=== PATIENT | male | born 1975 | race African-American/Black ===

== ENCOUNTER 2018-09-12 09:50 | Emergency (ER) | payer SELFPAY | END 2018-09-12 10:16 | disposition home or self-care (01) | LOC: BURERS 09:50 | DX: R05 Cough (principal); I10 Essential (primary) hypertension | CPT/HCPCS: 99283 ==

== ENCOUNTER → 2019-06-16 | Emergency (ER) | payer SELFPAY ==
[~2019-06-16] MED LIST: Acetaminophen 500 MG TAB ONE
== END ==
LOC: BURERS 16:27
DX: K08.89 Other specified disorders of teeth and supporting structures (principal); Z79.899 Other long term (current) drug therapy
CPT/HCPCS: 99282

== ENCOUNTER 2019-06-18 07:09 | Emergency (ER) | payer SELFPAY ==
[2019-06-18] MEDS ORDERED: Amoxicillin/Potassium Clav 875 MG TAB ONE (07:27)
[2019-06-18] MEDS ORDERED: Ketorolac Tromethamine 60 MG/2 ML VIAL ONE (07:28)
[2019-06-18] MEDS ORDERED: cefTRIAXone\\ROCEPHIN 1 GM VIAL ONE (07:28)
[2019-06-18] MEDS ORDERED: Lidocaine 1% PF 5 ML VIAL ONE (07:28)
== END 2019-06-18 07:59 | disposition home or self-care (01) ==
LOC: BURERS 07:09
DX: K04.7 Periapical abscess without sinus (principal)
CPT/HCPCS: 96372; 99283; J0696; J1885; J2001

== ENCOUNTER 2020-02-23 16:18 | Emergency (ER) | payer SELFPAY ==
[2020-02-23] MEDS ORDERED: Lisinopril 20 MG TAB ONE (16:39)
== END 2020-02-23 16:47 | disposition home or self-care (01) ==
LOC: BURERS 16:18
DX: I10 Essential (primary) hypertension (principal); Z87.891 Personal history of nicotine dependence; Z79.899 Other long term (current) drug therapy
CPT/HCPCS: 99283

== ENCOUNTER 2020-02-24 12:18 | Emergency (ER) | payer SELFPAY ==
[2020-02-24 12:44] LABS: Hemoglobin 15.6 g/dL (14.0-18.0); Mean Corpuscular HGB CONC 30.8 g/dL (32.0-36.0); Mean Corpuscular Hemoglobin 26.7 pg (27.0-31.0); Mean Corpuscular Volume 86.8 fL (78.0-98.0); Mean Platelet Volume 7.1 fL (7.4-10.4); Platelet Count 291 thou/uL (130-400); Red Blood Cell (RBC) Count 5.82 mill/uL (4.70-6.10); White Blood Cell (WBC) Count 5.8 thou/uL (4.8-10.8)
[2020-02-24 13:00] LABS: ALT (SGPT) 30 U/L (8-55); AST (SGOT) 28 U/L (5-34); Albumin 4.6 g/dL (3.5-5.0); Alkaline Phosphatase 56 U/L (40-110); Anion Gap 15 mmol/L (10-20); BUN (Urea Nitrogen) 15 mg/dL (8.9-20.6); Bilirubin, Total 0.9 mg/dL (0.2-1.2); Calc. Creatinine Clearance 0 mL/min (70-130); Calcium 11.5 mg/dL (7.8-10.44); Carbon Dioxide 28 mmol/L (22-29); Chloride 104 mmol/L (98-107); Estimated GFR-MDRD 87; Globulin 2.9 g/dL (2.4-3.5); Glucose 117 mg/dL (70-105); Potassium 3.9 mmol/L (3.5-5.1); Protein, Total 7.5 g/dL (6.0-8.3); Sodium 143 mmol/L (136-145)
[2020-02-24 13:01] LABS: Band 7 % (5-11); Lymphocytes 29 % (21-51); MDiff Complete? YES; Monocytes 18 % (0-10); Neutrophil 46 % (42-75)
--- NOTE | 2020-02-24 21:25 | RAD ---
PORTABLE CHEST: 02/24/20 An AP portable film at 1243 shows a normal sized heart and clear lungs. There is no vascular congesti on, edema, or pleural effusion. No focal pulmonary infiltrate was seen. The mediastinum appears cayla l. IMPRESSION: No acute thoracic finding. POS: HOME
== END 2020-02-24 13:27 | disposition home or self-care (01) ==
LOC: BURERS 12:18
DX: R07.89 Other chest pain (principal); F41.9 Anxiety disorder, unspecified; I10 Essential (primary) hypertension; Z87.891 Personal history of nicotine dependence; Z79.899 Other long term (current) drug therapy
CPT/HCPCS: 71045; 80053; 82550; 84443; 84484; 85025; 93005; 96360

== ENCOUNTER 2020-10-09 10:33 | Emergency (ER) | payer SELFPAY ==
[~2020-10-09 10:33] MED LIST changes: -Acetaminophen 500 MG TAB ONE; +Hydrochlorothiazide 25 MG TAB ONE
[2020-10-09] MEDS ORDERED: Lisinopril 20 MG TAB ONE (11:11)
== END 2020-10-09 11:20 | disposition home or self-care (01) ==
LOC: BURERS 10:33
DX: I10 Essential (primary) hypertension (principal); Z87.891 Personal history of nicotine dependence
CPT/HCPCS: 99283

== ENCOUNTER → 2021-04-19 | Emergency (ER) | payer SELFPAY ==
[~2021-04-19] MED LIST changes: +Aspirin Chewable 81 MG TAB ONE; -Hydrochlorothiazide 25 MG TAB ONE; +Nitroglycerin 0.4 MG TAB 1 EACH ONE
[2021-04-19 09:03] LABS: #Basophils 0.1 thou/uL (0.0-0.2); #Eosinphils 0.2 thou/uL (0.0-0.7); #Lymphocytes 2.1 thou/uL (1.20-3.40); #Monocytes 0.5 thou/uL (0.11-0.59); #Neutrophils 4.2 thou/uL (1.40-6.50); %Basophils 1.3 % (0.0-1.0); %Eosinophils 3.1 % (0.0-10.0); %Lymphocytes 29.8 % (21.0-51.0); %Monocytes 7.3 % (0.0-10.0); %Neutrophils 58.4 % (42.0-75.0); Mean Corpuscular HGB CONC 32.4 g/dL (32.0-36.0); Mean Corpuscular Hemoglobin 26.6 pg (27.0-31.0); Mean Platelet Volume 6.7 fL (7.4-10.4); Platelet Count 331 thou/uL (130-400); Red Blood Cell (RBC) Count 6.01 mill/uL (4.70-6.10); White Blood Cell (WBC) Count 7.1 thou/uL (4.8-10.8)
[2021-04-19 09:13] LABS: ALT (SGPT) 57 U/L (8-55); AST (SGOT) 58 U/L (5-34); Albumin 4.6 g/dL (3.5-5.0); Alkaline Phosphatase 60 U/L (40-110); Anion Gap 17 mmol/L (10-20); BUN (Urea Nitrogen) 28 mg/dL (8.9-20.6); Bilirubin, Total 0.9 mg/dL (0.2-1.2); Calc. Creatinine Clearance 0 mL/min (70-130); Calcium 11.8 mg/dL (7.8-10.44); Carbon Dioxide 24 mmol/L (22-29); Chloride 104 mmol/L (98-107); Globulin 3.4 g/dL (2.4-3.5); Glucose 123 mg/dL (70-105); Potassium 3.8 mmol/L (3.5-5.1); Sodium 141 mmol/L (136-145)
[2021-04-19 17:53] LABS: Amphetamine Not Detected (NotDetected); Barbiturates Screen Not Detected (NotDetected); Benzodiazepine Screen Not Detected (NotDetected); Cocaine Metabolite Screen Not Detected (NotDetected); Medtox Control Line Valid? VALID (VALID); Methadone Not Detected (NotDetected); Methamphetamine Not Detected (NotDetected); Opiate Screen Not Detected (NotDetected); Oxycodone Screen Not Detected (NotDetected); Phencyclidine (PCP) Not Detected (NotDetected); THC/Cannabinoid Screen Not Detected (NotDetected); Tricyclic Screen Not Detected (NotDetected)
[2021-04-19 18:11] LABS: SARS-CoV-2 NAA Rapid Test Not Detected (NotDetected)
== END ==
LOC: BURERS 08:35
DX: R07.2 Precordial pain (principal); I49.8 Other specified cardiac arrhythmias; R06.02 Shortness of breath; R11.0 Nausea; I10 Essential (primary) hypertension; F17.210 Nicotine dependence, cigarettes, uncomplicated; Z20.822 Contact with and (suspected) exposure to COVID-19; Z79.899 Other long term (current) drug therapy
CPT/HCPCS: 71045; 80053; 80306; 83880; 84484; 85025; 93005; 94760; U0002

== ENCOUNTER 2021-08-16 20:56 | Emergency (ER) | payer SELFPAY ==
[2021-08-16] MEDS ORDERED: Hydrochlorothiazide 25 MG TAB PO SCH (22:15)
[2021-08-16] MEDS ORDERED: Lisinopril 20 MG TAB PO SCH (22:15)
== END 2021-08-16 22:55 | disposition home or self-care (01) ==
LOC: BURERS 20:56
DX: I10 Essential (primary) hypertension (principal); F17.210 Nicotine dependence, cigarettes, uncomplicated; Z79.899 Other long term (current) drug therapy
CPT/HCPCS: 93005

== ENCOUNTER 2021-10-09 15:12 | Emergency (ER) | payer OTHER, SELFPAY | END 2021-10-09 16:31 | disposition home or self-care (01) | LOC: BURERS 15:12 | DX: S80.11XA Contusion of right lower leg, initial encounter (principal); I10 Essential (primary) hypertension; F17.210 Nicotine dependence, cigarettes, uncomplicated; X58.XXXA Exposure to other specified factors, initial encounter ==